=== PATIENT | male | born 1945 | race Caucasian/White ===

== ENCOUNTER 2019-03-08 17:04 | Emergency (ER) | payer MEDICARE, BC ==
[2019-03-08 17:25] VITALS: BP 130/73
--- NOTE | 2019-03-08 18:01 | UC ---
Bite Injury/Animal HPI - HPI Summary HPI Summary: 73-year-old male comes in with a chief complaint of a tick attached to his right upper arm. He noticed it today. Last time he was outside was 2 days ago. No rash some fevers no chills feels well otherwise. - History of Current Complaint Chief Complaint: [employer] Stated Complaint: TICK Time Seen by Provider: 03/08/19 17:33 Pain Intensity: 0 - Allergies/Home Medications Allergies/Adverse Reactions: Allergies Allergy/AdvReac Type Severity Reaction Status Date / Time No Known Allergies Allergy Verified 03/08/19 17:25 Home Medications: Home Medications Atorvastatin* [Lipitor*] 20 mg PO DAILY 03/08/19 [History Confirmed 03/08/19] Cholecalciferol (Vitamin D3) [Vitamin D3] 1,200 unit PO DAILY 03/08/19 [History Confirmed 03/08/19] Lisinopril TAB* [Prinivil TAB*] 40 mg PO DAILY 03/08/19 [History Confirmed 03/08] Vitamin E 400 unit PO DAILY 03/08/19 [History Confirmed 03/08/19] amLODIPine TAB* [Norvasc 5 mg TAB*] 5 mg PO DAILY 03/08/19 [History Confirmed ] PMH/Surg Hx/FS Hx/Imm Hx Previously Healthy: Yes Endocrine History: Dyslipidemia Cardiovascular History: Hypertension - Surgical History Surgical History: Yes Surgery Procedure, Year, and Place: appy, T&A, deviated septum, vasectomy reversal - Social History Alcohol Use: Daily Substance Use Type: None Smoking Status (MU): Heavy Every Day Tobacco Smoker Review of Systems All Other Systems Reviewed And Are Negative: Yes Constitutional: Positive: Negative Skin: Positive: Other - SEE HPI Eyes: Positive: Negative ENT: Positive: Negative Respiratory: Positive: Negative Cardiovascular: Positive: Negative Gastrointestinal: Positive: Negative Motor: Positive: Negative Neurovascular: Positive: Negative Musculoskeletal: Positive: Negative Neurological: Positive: Negative Psychological: Positive: Negative Is Patient Immunocompromised?: No Physical Exam Triage Information Reviewed: Yes Appearance: Well-Appearing, No Pain Distress, Well-Nourished Vital Signs: Initial Vital Signs Temp 98.7 F 03/08/19 17:20 Pulse 72 03/08/19 17:20 Resp 16 03/08/19 17:20 BP 130/73 03/08/19 17:20 Pulse Ox 98 03/08/19 17:20 Vital Signs Reviewed: Yes Eye Exam: Normal Eyes: Positive: Conjunctiva Clear Neck: Positive: Supple Respiratory: Positive: No respiratory distress Musculoskeletal: Positive: Strength Intact, ROM Intact Neurological: Positive: Alert, Muscle Tone Normal Psychological: Positive: Normal Response To Family, Age Appropriate Behavior Skin: Positive: Other - On the posterior aspect of the right upper arm just proximal to the elbow there is a tick attached which I removed with tick twisters. There is no rash. Bite Injury Course/Dx - Differential Dx/Diagnosis Provider Diagnosis: Tick bite of right upper arm Discharge ED - Sign-Out/Discharge Documenting (check all that apply): Patient Departure All imaging exams completed and their final reports reviewed: No Studies - Discharge Plan Condition: Stable Disposition: HOME Prescriptions: DOXYcycline CAP(*) [DOXYcycline 100MG CAP(*)] 200 mg PO ONCE #2 cap Patient Education Materials: Tick Bite (ED) Referrals: Young Cruz MD [Primary Care Provider] - Additional Instructions: FOLLOW UP WITH YOUR DOCTOR IF NOT COMPLETELY IMPROVED. GET RECHECKED SOONER IF YOUR CONDITION WORSENS; BULLS EYE RASH, SYMPTOMS OF LYME DISEASE OR ANY QUESTIONS OR CONCERNS. - Billing Disposition and Condition Condition: STABLE Disposition: Home
== END 2019-03-08 18:07 | disposition home or self-care (01) ==
LOC: UCEAST 17:04
DX: S40.861A Insect bite (nonvenomous) of right upper arm, initial encounter (principal); I10 Essential (primary) hypertension; E78.5 Hyperlipidemia, unspecified; F17.290 Nicotine dependence, other tobacco product, uncomplicated; Z79.899 Other long term (current) drug therapy; Z88.8 Allergy status to other drugs, medicaments and biological substances; W57.XXXA Bitten or stung by nonvenomous insect and other nonvenomous arthropods, initial encounter; Y92.9 Unspecified place or not applicable
CPT/HCPCS: 99202; G0463